=== PATIENT | male | born 2000 | race Caucasian/White ===

== ENCOUNTER 2024-08-24 22:06 | Emergency (ER) | payer MEDICAID ==
[~2024-08-24] VITALS: Ht 165.1 cm; Wt 72.0 kg
[2024-08-24 22:20] VITALS: O2SAT 99
[2024-08-24 22:25] VITALS: BP 120/77; PULSE 86; RESP 17; TEMP 36.8; O2SAT 99
[2024-08-25] MEDS ORDERED: ALBU18HF2 IH (03:36)
[2024-08-25] MEDS ORDERED: DIPH25CA83 MT (03:36)
== END 2024-08-25 05:38 | disposition home or self-care (01) ==
LOC: ER 22:06
DX: T78.40XA Allergy, unspecified, initial encounter (principal); Y92.89 Other specified places as the place of occurrence of the external cause
CPT/HCPCS: 71045; 99283